=== PATIENT | female | born 1970 | race African-American/Black ===

== ENCOUNTER 2018-09-13 22:12 | Emergency (ER) | payer SELFPAY ==
[2018-09-13] MEDS ORDERED: Lidocaine 1% (PF) 30 ML VIAL ONE ×2 (22:54→22:56)
[2018-09-13] MEDS ORDERED: Proparacaine 0.5% Opth 15 ML BOT ONE (22:56)
[2018-09-13] MEDS ORDERED: Bupivacaine 0.5% 10 ML VIAL ONE (23:07)
== END 2018-09-13 23:32 | disposition home or self-care (01) ==
LOC: ERS 22:12
DX: L03.011 Cellulitis of right finger (principal)
CPT/HCPCS: 10060; J2001; J3490

== ENCOUNTER 2019-07-01 06:21 | Emergency (ER) | payer SELFPAY | END 2019-07-01 06:54 | disposition home or self-care (01) | LOC: ERS 06:21 | DX: S39.012A Strain of muscle, fascia and tendon of lower back, initial encounter (principal); X50.9XXA Other and unspecified overexertion or strenuous movements or postures, initial encounter | CPT/HCPCS: 99283 ==

== ENCOUNTER 2020-06-23 17:34 | Emergency (ER) | payer SELFPAY | END 2020-06-23 18:20 | disposition home or self-care (01) | LOC: ERS 17:34 | DX: S29.012A Strain of muscle and tendon of back wall of thorax, initial encounter (principal); M25.512 Pain in left shoulder; X50.0XXA Overexertion from strenuous movement or load, initial encounter | CPT/HCPCS: 99283 ==

== ENCOUNTER 2021-03-15 06:46 | Emergency (ER) | payer SELFPAY ==
[2021-03-15] MEDS ORDERED: Acetaminophen 500 MG TAB ONE ×2 (07:34→07:36)
== END 2021-03-15 07:40 | disposition home or self-care (01) ==
LOC: ERS 06:46
DX: S29.012A Strain of muscle and tendon of back wall of thorax, initial encounter (principal); X50.1XXA Overexertion from prolonged static or awkward postures, initial encounter; Y93.F9 Activity, other caregiving
CPT/HCPCS: 99283

== ENCOUNTER 2021-09-18 05:58 | Emergency (ER) | payer SELFPAY ==
[2021-09-18 07:52] LABS: ALT (SGPT) 12 U/L (8-55); AST (SGOT) 16 U/L (5-34); Albumin 3.7 g/dL (3.5-5.0); Alkaline Phosphatase 59 U/L (40-110); Anion Gap 12 mmol/L (10-20); BUN (Urea Nitrogen) 11 mg/dL (9.8-20.1); Bilirubin, Total 0.2 mg/dL (0.2-1.2); Calc. Creatinine Clearance 0 mL/min (70-130); Calcium 8.8 mg/dL (7.8-10.44); Carbon Dioxide 21 mmol/L (22-29); Chloride 109 mmol/L (98-107); Globulin 3.6 g/dL (2.4-3.5); Glucose 112 mg/dL (70-105); Potassium 3.7 mmol/L (3.5-5.1); Protein, Total 7.3 g/dL (6.0-8.3); Sodium 138 mmol/L (136-145)
[2021-09-18 07:56] LABS: #Basophils 0.1 thou/uL (0.0-0.2); #Eosinphils 0.1 thou/uL (0.0-0.7); #Lymphocytes 2.5 thou/uL (1.20-3.40); #Monocytes 0.6 thou/uL (0.11-0.59); #Neutrophils 3.2 thou/uL (1.40-6.50); %Basophils 1.4 % (0.0-1.0); %Eosinophils 1.9 % (0.0-10.0); %Lymphocytes 38.2 % (21.0-51.0); %Monocytes 8.6 % (0.0-10.0); %Neutrophils 49.9 % (42.0-75.0); Hemoglobin 10.3 g/dL (12.0-16.0); Hypochromia SLIGHT = 6-15 cells (100X) (0-5/hpf); MDiff Complete? YES; Mean Corpuscular HGB CONC 29.5 g/dL (32.0-36.0); Mean Corpuscular Hemoglobin 22.5 pg (27.0-31.0); Mean Corpuscular Volume 76.1 fL (78.0-98.0); Mean Platelet Volume 10.1 fL (7.4-10.4); Microcytosis SLIGHT = 6-15 cells (100X) (0-5/hpf); Platelet Count 238 thou/uL (130-400); Platelet Morphology Comment Appears Adequate; Polychromasia SLIGHT = 2-3 cells (100X) (0-2/hpf); RBC Distribution Width 15.2 % (11.5-14.5); Red Blood Cell (RBC) Count 4.57 mill/uL (4.20-5.40); White Blood Cell (WBC) Count 6.5 thou/uL (4.8-10.8)
== END 2021-09-18 08:20 | disposition home or self-care (01) ==
LOC: ERS 05:58
DX: I10 Essential (primary) hypertension (principal); D64.9 Anemia, unspecified
CPT/HCPCS: 36415; 80053; 85025; 93005

== ENCOUNTER 2024-05-04 14:25 | Outpatient (CLI) | payer BC | END 2024-05-04 14:26 | disposition home or self-care (01) | LOC: BICMAMMO 14:25 | PROVIDERS: ATTEND Nurse Practitioner Family | DX: Z12.31 Encounter for screening mammogram for malignant neoplasm of breast (principal) | CPT/HCPCS: 77063; 77067 ==